=== PATIENT | female | born 1955 | race Caucasian/White ===

== ENCOUNTER 2021-06-21 07:16 | Day surgery (SDC) | payer MEDICARE ==
[~2021-06-21] VITALS: Ht 160 cm; Wt 90.9 kg
[2021-06-21] MEDS ORDERED: LASIX 40MG TABL40 MG PO (07:37)
[2021-06-21] MEDS ORDERED: K-TAB20 PO (07:38)
[2021-06-21] MEDS ORDERED: PRILOTC PO (07:38)
[2021-06-21] MEDS ORDERED: SYNTHROID0.112 MG/T PO (07:38)
[2021-06-21] MEDS ORDERED: HYZAAR 25 MG-101 TAB PO (07:39)
[2021-06-21 08:24] VITALS: BP 190/87; PULSE 64; TEMP 97.1
[2021-06-21 09:00] VITALS: BP 132/66; PULSE 54; TEMP 97
[2021-06-21 09:15] VITALS: BP 158/78; PULSE 51
[2021-06-21 09:30] VITALS: BP 161/78; PULSE 53
[2021-06-21 09:45] VITALS: BP 171/73; PULSE 52
--- NOTE | 2021-06-21 10:15 | NUR ---
0900 Pt returns from endo procedure via cart and RN assist to [facility]. Pt ambulates from cart to recliner with RN assist. Monitors on and alarms set. Call light within reach. Report received from JACK Crenshaw. Pt alert and oriented. Pt requests pepsi and saltines. Pt denies any pain or nausea. Pt's present in room. 0930 Pt taking food and drink well. No complications noted. 1000 Discharge instructions given to pt and . All questions answered to their satisfaction. Handed to pt are a thank you card and discharge information. 1015 Pt transferred out of the hospital via wheelchair and this RN assist, to private vehicle driven by pt's .
== END 2021-06-21 10:15 | disposition home or self-care (01) ==
LOC: SDCO 07:16
DX: K29.30 Chronic superficial gastritis without bleeding (principal); Z79.82 Long term (current) use of aspirin; Z79.899 Other long term (current) drug therapy; I10 Essential (primary) hypertension; G47.33 Obstructive sleep apnea (adult) (pediatric); K21.9 Gastro-esophageal reflux disease without esophagitis; M19.90 Unspecified osteoarthritis, unspecified site; Z85.828 Personal history of other malignant neoplasm of skin
CPT/HCPCS: J7030